=== PATIENT | female | born 1965 | race Caucasian/White ===

== ENCOUNTER 2022-03-24 05:35 | Day surgery (SDC) | payer OTHER ==
[~2022-03-24] VITALS: Ht 167.6 cm; Wt 96.8 kg
[2022-03-24] MEDS ORDERED: ONDANSETRON HCL 4 MG/2 ML VIAL IVP ONE (08:00)
[2022-03-24] MEDS ORDERED: MIDAZOLAM HCL 5 MG/5 ML VIAL IVP ONE (08:00)
[2022-03-24] MEDS ORDERED: NS IRRIG SOLN 1000 ML IR ONE (08:00)
[2022-03-24] MEDS ORDERED: DEXTROSE 50% JECT 50 ML DISP.SYRIN IVP ONE (08:00)
[2022-03-24] MEDS ORDERED: ROCURONIUM BROMIDE 10 MG/ML (ZEMURON) IV ONE (08:00)
[2022-03-24] MEDS ORDERED: PROPOFOL 200MG/ 20ML VIAL (DIPRIVAN) IV ONE (08:00)
[2022-03-24] MEDS ORDERED: KETOROLAC TROMETHAMINE 30 MG VIAL IVP ONE (08:00)
[2022-03-24] MEDS ORDERED: DESFLURANE 15 MIN GAS INH ONE (08:00)
[2022-03-24] MEDS ORDERED: fentaNYL CITRATE 250 MCG/5 ML AMP IV ONE (08:00)
[2022-03-24] MEDS ORDERED: LR 1,000 ML IV.SOLN IV ONE (08:00)
[2022-03-24] MEDS ORDERED: BUPIVACAINE /EPINEPHRINE/PF 0.25% 30 ML VIAL INJ ONE (08:00)
[2022-03-24] MEDS ORDERED: BUPIVACAINE /PF 0.25% 30 ML VIAL INJ ONE (08:00)
[2022-03-24] MEDS ORDERED: ROPIVACAINE HCL/PF 0.2% EPIDURAL 200 ML PLAST..BAG EP ONE (08:00)
[2022-03-24] MEDS ORDERED: DEXAMETHASONE SOD PHOSPHATE 4 MG/ML VIAL IVP ONE (08:00)
[2022-03-24] MEDS ORDERED: FUROSEMIDE 20 MG/2 ML VIAL IVP ONE (08:00)
[2022-03-24] MEDS ORDERED: SUGAMMADEX SODIUM 200 MG/2 ML VIAL IV ONE (08:00)
[2022-03-24] MEDS ORDERED: NS 1000 ML IV.SOLN IV ONE (08:00)
[2022-03-24] MEDS ORDERED: CEFAZOLIN SOD 2 GM in D5W 50 ML IV ONE (08:15)
[2022-03-24] MEDS ORDERED: ACETAMINOPHEN I.V. 1000 MG 100 ML IV ONE (08:36)
[2022-03-24] MEDS ORDERED: LR 1,000 ML IV SCH (09:45)
[2022-03-24] MEDS ORDERED: LABETALOL 100 MG/ 20ML VIAL IVP PRN (09:45)
[2022-03-24] MEDS ORDERED: MEPERIDINE HCL/PF 25 MG/ML DISP.SYRIN IVP PRN (09:45)
[2022-03-24] MEDS ORDERED: hydrALAZINE HCL 20 MG/ML VIAL IVP PRN (09:45)
[2022-03-24] MEDS ORDERED: MIDAZOLAM HCL 2 MG/2 ML VIAL (VERSED) IVP PRN (09:45)
[2022-03-24] MEDS ORDERED: HYDROmorphone 1 MG/ML INJ. CARTRIDGE IVP PRN ×2 (09:45)
[2022-03-24] MEDS ORDERED: METOCLOPRAMIDE HCL 10 MG/2 ML VIAL IVP PRN (09:45)
[2022-03-24] MEDS ORDERED: HYDROmorphone 1 MG/ML INJ. CARTRIDGE ONE (11:19)
[2022-03-24] MEDS ORDERED: METOCLOPRAMIDE HCL 10 MG/2 ML VIAL ONE (11:24)
[2022-03-24 14:32] VITALS: BP_SYST 130
== END 2022-03-24 14:00 | disposition home or self-care (01) ==
LOC: SDS 05:35 → SMU 05:35 → SDS 14:00
PROVIDERS: ATTEND Specialist
DX: N95.0 Postmenopausal bleeding (principal); N72 Inflammatory disease of cervix uteri; R10.2 Pelvic and perineal pain; D25.0 Submucous leiomyoma of uterus; N83.202 Unspecified ovarian cyst, left side; R93.89 Abnormal findings on diagnostic imaging of other specified body structures; E66.01 Morbid (severe) obesity due to excess calories; Z68.35 Body mass index [BMI] 35.0-35.9, adult; Z79.899 Other long term (current) drug therapy; Z20.822 Contact with and (suspected) exposure to COVID-19
CPT/HCPCS: 36415; 58552; 64488; 88307; 88341; 88342; U0003; J3490 ×3; J0690; J1100; J1940; J1885; J2765; J2250; J2405; J2704; J3010; J1170; J7060; J7120; J7030; C1727; J0131; S2900